=== PATIENT | female | born 1995 | race Caucasian/White ===

== ENCOUNTER 2017-02-24 20:46 | Emergency (ER) | payer MEDICAID ==
[2017-02-24 21:34] VITALS: BP 126/79
--- NOTE | 2017-02-24 23:04 | ER Document Report ---
ED General - General Chief Complaint: Sore Throat Stated Complaint: SORE THROAT Time Seen by Provider: 02/24/17 22:54 Notes: Patient is a 21 year old female presents with complaints of runny nose, cough, congestion, sore throat for a week. She says she initially felt like she had some fever but that has resolved but she still has a cough. She is hurts in her ribs and abdomen whenever she coughs. No dysuria. No vomiting. No diarrhea. She is a smoker. TRAVEL OUTSIDE OF THE [place] IN LAST 30 DAYS: No - Related Data Allergies/Adverse Reactions: amoxicillin trihydrate [From Augmentin] Allergy (Intermediate, Verified 21:32) Penicillins Allergy (Verified 02/24/17 21:32) Potassium Clavulanate * [From Augmentin] Allergy (Verified 02/24/17 21:32) sulfamethoxazole [From Septra] Allergy (Verified 02/24/17 21:32) rash trimethoprim [From Septra] Allergy (Verified 02/24/17 21:32) rash Past Medical History - Social History Smoking Status: Current Every Day Smoker Frequency of alcohol use: None Family History: Reviewed & Not Pertinent Neurological Medical History: Reports: Hx Seizures Renal/ Medical History: Denies: Hx Peritoneal Dialysis Psychiatric Medical History: Reports: Hx Depression - and anxiety Past Surgical History: Reports: Hx Section, Hx Oral Surgery - wisdom - Immunizations Immunizations up to date: Yes Hx Diphtheria, Pertussis, Tetanus Vaccination: Yes Hx Pneumococcal Vaccination: 05/11/14 Review of Systems - Review of Systems Notes: My Normal Review Basic REVIEW OF SYSTEMS: CONSTITUTIONAL : Subjective fever EENT: Nasal congestion. Sore throat. CARDIOVASCULAR: Denies chest pain. RESPIRATORY: Recurrent cough. GASTROINTESTINAL: Denies abdominal pain. Denies nausea, vomiting, or diarrhea. Denies constipation. Last BM: GENITOURINARY: Denies difficulty urinating, painful urination, burning, frequency, or blood in urine. MUSCULOSKELETAL: Denies neck or back pain or joint pain or swelling. SKIN: Denies rash or skin lesions. NEUROLOGICAL: Denies altered mental status or loss of consciousness. Denies headache. Denies weakness or paralysis or loss of use of either side. Denies problems with gait or speech. Denies sensory or motor loss. ALL OTHER SYSTEMS REVIEWED AND NEGATIVE. Physical Exam - Vital signs Vitals: Temp Pulse Resp BP Pulse Ox 98.8 F 93 H 16 126/79 H 100 02/24/17 21:32 02/24/17 21:32 02/24/17 21:32 02/24/17 21:32 02/24/17 21:32 - Notes Notes: General Appearance: Well nourished, alert, cooperative, no acute distress, mild obvious discomfort. Vitals: reviewed, See vital signs table. Head: no swelling or tenderness to the head Eyes: PERRL, EOMI, Conjuctiva clear Mouth: No decreasd moisture Throat: Mild tonsillar inflammation, No airway obstruction, No lymphadenopathy Neck: Supple, no neck tenderness, Lungs: No wheezing, No rales, No rhonci, No accessory muscle use, good air exchange bilaterally. Heart: Normal rate, Regular rythm, No murmur, no rub Abdomen: Normal BS, soft, No rigidity, mild lower abdominal tenderness to palpation, No guarding, no rebound, no abdominal masses, no organomegaly Extremities: strength 5/5 in all extremities, good pulses in all extremities, no swelling or tenderness in the extremities, no edema. Skin: warm, dry, appropriate color, no rash Neuro: speech clear, oriented x 3, normal affect, responds appropriately to questions. Course - Vital Signs Vital signs: Temp Pulse Resp BP Pulse Ox 98.8 F 93 H 16 126/79 H 100 02/24/17 21:32 02/24/17 21:32 02/24/17 21:32 02/24/17 21:32 02/24/17 21:32 - Transfer of Care Notes: 02/24/17 23:46 Patient's coughing congestion consistent with a URI that is looked bronchitis. She is a smoker. Informed her she has quit smoking. I told her that she would take a lot longer to improve as she continues smoke. I will give her shot Decadron. I will place her an albuterol inhaler. Her strep test was negative. She has no tachypnea. She has good air exchange without wheezing. At this time we'll she is safe to be discharged home. She is to return to ER if she has difficulty breathing, fevers, or if she feels that she is worsening. Patient agrees with plan and will be discharged home. Dictation of this chart was performed using voice recognition software; therefore, there may be some unintended grammatical errors. Discharge - Discharge Clinical Impression: URI (upper respiratory infection) Qualifiers: URI type: unspecified URI Qualified Code(s): J06.9 - Acute upper respiratory infection, unspecified Acute bronchitis Qualifiers: Bronchitis organism: unspecified organism Qualified Code(s): J20.9 - Acute bronchitis, unspecified Condition: Good Disposition: HOME, SELF-CARE Additional Instructions: BRONCHITIS: You have acute bronchitis. This disease is an infection or inflammation of the air passageways in your lungs. Symptoms usually include cough, low grade fever, shortness of breath, and wheezing. The cough usually persists for a couple of weeks. Most cases of bronchitis get better without antibiotics. We prescribe antibiotics when we believe bacteria are damaging your airways, or if there's high risk the bronchitis will worsen into pneumonia. Increase your fluid intake. A cool mist humidifier may make your lungs more comfortable. An expectorant (cough medicine that loosens phlegm) can help. If you smoke, STOP!!! Recovery from bronchitis can be somewhat slow, but you should see improvement within a day or two. Repeated episodes of bronchitis may result in lung damage -- for example, chronic bronchitis, recurrent pneumonias, or emphysema. Call the doctor if you develop increasing fever, shortness of breath, chest pain, bloody sputum, or otherwise worsen. If you have not improved at all after several days, contact the physician. INHALED BRONCHODILATORS: You have received a treatment of and/or prescription for an inhaled bronchodilator -- a medication which stimulates the airways in the lung to dilate. This improves the flow of air in asthma, bronchitis, and emphysema. These medicines have some similarity to adrenaline, and can cause similar side effects: shakiness, racing heart, and a sense of nervousness. These side effects decrease with time. Contact your doctor if these side effects are severe. Do not over-use the medicine. Too-frequent use of the inhaler may make it ineffective. Call your doctor if the inhaler is not controlling your symptoms at the prescribed doses. STEROID MEDICATION: You have been given an injection of or oral medicine of the cortisone/ steroid class. This medication is used to control inflammation or allergy. Nirav t is usually only given for a short period of time, until the acute process subsides. There are usually no side effects from short-term use of cortisone-like medications. Some persons feel an increased sense of well-being and are not sleepy at bedtime. Long-term use of cortisone medications is best avoided, unless required for a severe condition. If your condition does not remit, or relapses after the course of corticosteroid medication, you should consult your physician. USE OF ACETAMINOPHEN (Tylenol): Acetaminophen may be taken for pain relief or fever control. It's much safer than aspirin, offering a wider range of "safe" dosages. It is safe during . Some brand names are Tylenol, Panadol, Datril, Anacin 3, Tempra, and Liquiprin. Acetaminophen can be repeated every four hours. The following are maximum recommended dosages: >89 pounds or adults 650 mg to 900 mg Acetaminophen can be repeated every four hours. Maximum dose not to exceed 4000 mg a day. SMOKING: If you smoke, you should stop smoking. The tar and chemicals in cigarette smoke are harmful. Smoking has been shown to cause: emphysema chronic bronchitis lung cancer mouth and throat cancer stomach and pancreas cancer premature aging defects In addition, smoking increases ear and lung infections in children of smokers. FOLLOW-UP CARE: If you have been referred to a physician for follow-up care, call the physician s office for an appointment as you were instructed or within the next two days. If you experience worsening or a significant change in your symptoms, notify the physician immediately or return to the Emergency Department at any time for re-evaluation. Please return to the ER immediately if you develop fevers, difficulty breathing , or feel that your symptoms are worsening. Please use the inhaler as 2 puffs every 4 hours for cough. Forms: Return to Work
[2017-02-24] MEDS ORDERED: DEXAMETHASONE SOD PHOS INJ 10 MG/1 ML VIAL IM ONE (23:44)
[2017-02-24] MEDS ORDERED: ALBUTEROL SULFATE HFA (90 MCG/PUFF) 8 GM MDI (1 MDI/ER DISP) IH ONE (23:45)
== END 2017-02-25 00:05 | disposition home or self-care (01) ==
LOC: ER 20:46
DX: J06.9 Acute upper respiratory infection, unspecified (principal); J02.9 Acute pharyngitis, unspecified; R09.89 Other specified symptoms and signs involving the circulatory and respiratory systems; R05 Cough; R09.81 Nasal congestion; R50.9 Fever, unspecified; F17.200 Nicotine dependence, unspecified, uncomplicated
CPT/HCPCS: 99283; 96372; 87070; 87880; 71020; J1100; J3490

== ENCOUNTER 2019-06-15 12:06 | Emergency (ER) | payer SELFPAY ==
--- NOTE | 2019-06-15 12:51 | ER Document Report ---
Entered by TEMI KRUEGER SCRIBE 06/15/19 1232 Acting as scribe for:CORIE ADAMS MD ED Substance Abuse / Acc. OD - General Chief Complaint: Overdose Stated Complaint: POSSIBLE DEHYDRATION Time Seen by Provider: 06/15/19 12:25 Primary Care Provider: BONNIE BARRIGA MD [Primary Care Provider] - Follow up as needed Mode of Arrival: Medic Information source: Patient, Emergency Med Personnel Notes: Patient is a 24 year old female that presents to the emergency department today after being found by [employer] passed out on a park bench. [employer] reports that the patient was minimally arousable. Patient had a needle in her arm when she was found. Patient endorses heroin abuse for the last year. Patient states the last time she remembers using heroin was last night at around 11 p.m. Patient states her LMP was about a month ago. TRAVEL OUTSIDE OF THE [place] IN LAST 30 DAYS: No - Related Data Allergies/Adverse Reactions: amoxicillin trihydrate [From Augmentin] Allergy (Intermediate, Verified 06/15/19 12:48) Penicillins Allergy (Verified 06/15/19 12:48) Potassium Clavulanate * [From Augmentin] Allergy (Verified 06/15/19 12:48) sulfamethoxazole [From Septra] Allergy (Verified 06/15/19 12:48) rash trimethoprim [From Septra] Allergy (Verified 06/15/19 12:48) rash Past Medical History - General Information source: Patient - Social History Smoking Status: Current Every Day Smoker Cigarette use (# per day): Yes Frequency of alcohol use: None Drug Abuse: Heroin - for the last year Family History: Reviewed & Not Pertinent Neurological Medical History: Reports: Hx Seizures Psychiatric Medical History: Reports: Hx Anxiety, Hx Depression Past Surgical History: Reports: Hx Section, Hx Oral Surgery - wisdom - Immunizations Immunizations up to date: Yes Hx Diphtheria, Pertussis, Tetanus Vaccination: Yes Hx Pneumococcal Vaccination: 05/11/14 Review of Systems - Review of Systems Constitutional: No symptoms reported EENT: No symptoms reported Cardiovascular: No symptoms reported Respiratory: No symptoms reported Gastrointestinal: No symptoms reported Genitourinary: No symptoms reported Female Genitourinary: See HPI, Last menstrual period - x1 month ago Musculoskeletal: No symptoms reported Skin: No symptoms reported Hematologic/Lymphatic: No symptoms reported Neurological/Psychological: See HPI, Other - substance abuse, likely overdose -: Yes All other systems reviewed and negative Physical Exam - Vital signs Vitals: Temp Resp BP Pulse Ox 97.5 F 29 H 123/79 100 06/15/19 12:17 06/15/19 12:17 06/15/19 12:17 06/15/19 12:17 - Notes Notes: Physical Exam: General: Alert, appears well. HEENT: Normocephalic. Atraumatic. PERRL. Extraocular movements intact. Oropharynx clear. Neck: Supple. Non-tender. Respiratory: No respiratory distress. Clear and equal breath sounds bilaterally. Cardiovascular: Regular rate and rhythm. Abdominal: Normal Inspection. Non-tender. No distension. Normal Bowel Sounds. Back: No gross abnormalities. Extremities: Moves all four extremities. Upper extremities: Normal inspection. Normal ROM. Lower extremities: Normal inspection. No edema. Normal ROM. Neurological: Normal cognition. AAOx4. Normal speech. Psychological: Normal affect. Normal Mood. Skin: Warm. Dry. Normal color. Course - Re-evaluation Re-evalutation: 06/15/19 15:38 After the initial evaluation, the patient became quite somnolent and stay that way for a while. Eventually gave her Narcan 0.4 mg and she did lighten up some and open her eyes but her pupils remains rather small and she was not really wanting to communicate. We will give her an additional 2 mg dose to see if we can make her wide awake so that we can talk with her about detox resources in the future. 06/15/19 15:54 The patient does not stay alert enough to get a good history, unable to determine the intent of this overdose. I suspect she was shooting up fentanyl thinking it was heroin due to the length of time that she remains under the influence of the medication. She will be kept here on 24-hour hold and reevaluated in the morning because of concern that this overdose may not have been accidental. - Vital Signs Vital signs: Temp Pulse Resp BP Pulse Ox 97.5 F 20 123/79 98 06/15/19 12:17 06/15/19 12:18 06/15/19 12:17 06/15/19 12:18 - Laboratory Result Diagrams: 06/15/19 12:39 06/15/19 12:39 Laboratory results interpreted by me: 06/15/19 12:39 Creatinine 0.51 L AST 37 H Salicylates < 1.0 L Acetaminophen < 10 L - EKG Interpretation by Me EKG shows normal: Sinus rhythm, [place], Intervals, QRS Complexes, ST-T Waves Rate: Normal - 67 Rhythm: NSR Critical Care Note - Critical Care Note Total time excluding time spent on procedures (mins): 35 Discharge - Discharge Clinical Impression: Opiate or related narcotic overdose Qualifiers: Encounter type: initial encounter Injury intent: undetermined intent Qualified Code(s): T40.604A - Poisoning by unspecified narcotics, undetermined, initial encounter Condition: Stable Disposition: PSYCH HOSP/UNIT Referrals: BONNIE BARRIGA MD [Primary Care Provider] - Follow up as needed Scribe Attestation: 06/15/19 12:51 I personally performed the services described in the documentation, reviewed and edited the documentation which was dictated to the scribe in my presence, and it accurately records my words and actions. I personally performed the services described in the documentation, reviewed and edited the documentation which was dictated to the scribe in my presence, and it accurately records my words and actions.
[2019-06-15 13:07] LABS: ABSOLUTE LYMPHOCYTES (AUTO) 2.1 10^3/uL (0.5-4.7); ABSOLUTE MONOCYTES (AUTO) 0.7 10^3/uL (0.1-1.4); ABSOLUTE NEUT (AUTO) 7.6 10^3/uL (1.7-8.2); BASOPHILS % (AUTO) 0.2 % (0-2); EOSINOPHILS % (AUTO) 0.2 % (0-6); HEMATOCRIT 37.1 % (36.0-47.0); HEMOGLOBIN 12.5 g/dL (12.0-15.5); LYMPHOCYTES % (AUTO) 20.3 % (13-45); MEAN CORPUSCULAR HEMOGLOBIN 30.2 pg (27.0-33.4); MEAN CORPUSCULAR HGB CONC 33.8 g/dL (32.0-36.0); MEAN CORPUSCULAR VOLUME 89 fl (80-97); PLATELET COUNT 255 10^3/uL (150-450); RED BLOOD COUNT 4.15 10^6/uL (3.72-5.28); RED CELL DISTRIBUTION WIDTH 13.5 % (11.5-14.0); SEGMENTED NEUTROPHILS % (AUTO) 72.3 % (42-78); TOTAL CELLS COUNTED % (AUTO) 100 %; WHITE BLOOD COUNT 10.4 10^3/uL (4.0-10.5)
[2019-06-15 13:24] LABS: ACETAMINOPHEN < 10 ug/mL (10-30); ALBUMIN 4.5 g/dL (3.5-5.0); ALCOHOL < 10 mg/dL (NONE DETECTED); ALKALINE PHOSPHATASE 64 U/L (38-126); ANION GAP 12 (5-19); ASPARTATE AMINO TRANSFERASE 37 U/L (14-36); BILIRUBIN,DIRECT 0.3 mg/dL (0.0-0.4); BILIRUBIN,TOTAL 0.7 mg/dL (0.2-1.3); BLOOD UREA NITROGEN 10 mg/dL (7-20); CALCIUM 9.4 mg/dL (8.4-10.2); CARBON DIOXIDE 25 mmol/L (22-30); CHLORIDE 103 mmol/L (98-107); GLUCOSE 99 mg/dL (75-110); POTASSIUM 4.1 mmol/L (3.6-5.0); SALICYLATE < 1.0 mg/dL (2.0-20.0); TOTAL PROTEIN 7.6 g/dL (6.3-8.2)
[2019-06-15] MEDS ORDERED: NORMAL SALINE 1000 ML 1,000 ML IV ONE (15:01)
--- NOTE | 2019-06-15 15:01 | EKG REPORT ---
SEVERITY:- NORMAL ECG - SINUS RHYTHM : Confirmed by: Candido De La Garza MD 15-Jun-2019 15:00:57
--- NOTE | 2019-06-15 15:18 | PSYCHOLOGICAL NOTE ---
Psych Note - Psych Note Date seen by psych provider: 06/15/19 Time seen by psych provider: 13:40 - Discussion with ED Physician at 1340. Chart review at 1401. Attempted evaluation from [id number]. Psych Note: Presenting Problem: Patient brought in by EMS after [employer] responded to female passed out on bench with needles, reportedly used methamphetamine and heroin last night, was tearful in triage, told ED Physician she had a at age 18 and has child, shut down when asked where child was and stated she wanted help with addiction. ED Physician contacted [facility]. Thea came, was provided with face sheet, made contact, left resources, said patient was sedated. Observed patient in bed, she responded to her name being said by barely opening eyes, eyes were glossy, eyelids heavy and she could not keep them open, pinpoint pupils. She was seen 02/19/13 for depression and suicidal ideation. Waiting on UDS. With more Narcan she became a little more alert, was able to express she was cold and that her 5 year old child was with her grandmother. Diagnosis: OD Polysubstance Use Opioid Methamphetamine Depression Medication recommendations made by the psychiatric medication provider, Dr. Magdalena MD., includes: Add Thorazine 50MG every 6 hours as needed for psychosis/agitation Add Cogentin 1MG daily given with Thorazine to curb tremor side effects often associated with antipsychotic medications Impression/Plan: Recommendation for 24 Hour IVC Petition. Unable to assess patient due to sedation. She stated she wanted help. Will reassess when sober and can engage in evaluation. [facility] provided referral. Outpatient SA resource sheet is on patient's physical chart with [facility] highlighted and noted they will assist with voluntary detox to include how, as well as listed out 6 locations [facility] makes referrals to. Consulted with Dr. Hickman regarding the management and care of patient. ED Physician in agreement with recommendations.
[2019-06-15] MEDS ORDERED: CLINDAMYCIN 600 MG/D5W RTU 600 MG/50 ML RTUPB IV ONE (15:20)
[2019-06-15] MEDS ORDERED: NALOXONE HCL INJ/PF 0.4 MG/1 ML SDV IV ONE (15:20)
[2019-06-15] MEDS ORDERED: NALOXONE HCL INJ 2 MG/2 ML DISP.SYRIN IV ONE (15:38)
[2019-06-15] MEDS ORDERED: NALOXONE HCL INJ 2 MG/2 ML DISP.SYRIN ONE (15:38)
[2019-06-15] MEDS ORDERED: DEXTROSE 5%-LACTATED RINGERS 1,000 ML IV ONE (15:59)
[2019-06-15 17:17] LABS: APPEARANCE,URINE SLIGHTLY-CLOUDY; BILIRUBIN,URINE NEGATIVE (NEGATIVE); COLOR,URINE YELLOW; GLUCOSE, URINE NEGATIVE (NEGATIVE); KETONES,URINE TRACE mg/dL (NEGATIVE); LEUKOCYTE ESTERASE,URINE SMALL (NEGATIVE); NITRITE,URINE POSITIVE (NEGATIVE); PROTEIN,URINE NEGATIVE (NEGATIVE); UROBILINOGEN,URINE NEGATIVE mg/dL (<2.0)
[2019-06-15 17:25] LABS: URINE BARBITURATES SCREEN NEGATIVE; URINE BENZODIAZEPINES SCREEN NEGATIVE; URINE COCAINE SCREEN UNCONFIRMED POSITIVE; URINE MARIJUANA (THC) SCREEN NEGATIVE; URINE METHADONE SCREEN NEGATIVE; URINE PHENCYCLIDINE SCREEN NEGATIVE
[2019-06-15] MEDS ORDERED: CLINDAMYCIN 300 MG/D5W RTU 300 MG/50 ML RTUPB IV SCH (18:00)
[2019-06-15 21:08] VITALS: BP 103/60
[2019-06-15] MEDS ORDERED: BENZTROPINE MESYLATE INJ 2 MG/2 ML AMPULE IM PRN (21:12)
[2019-06-15] MEDS ORDERED: CHLORPROMAZINE HCL 50 MG TABLET PO PRN (21:12)
[2019-06-15] MEDS: CLINDAMYCIN 300 MG/D5W RTU 300 MG/50 ML RTUPB IV SCH (22:19)
[2019-06-15] MEDS ORDERED: ACETAMINOPHEN 325 MG TABLET PO ONE (23:26)
[2019-06-16] MEDS: CLINDAMYCIN 300 MG/D5W RTU 300 MG/50 ML RTUPB IV SCH (06:50)
[2019-06-16] MEDS ORDERED: ACETAMINOPHEN 325 MG TABLET PO ONE (08:39)
--- NOTE | 2019-06-16 09:49 | ER Document Report ---
Doctor's Note Notes: 06/16/19 09:47 Patient seen and examined. Her mother just left the room, they had a significant argument. It was primarily over the patient's drug use. She states she is getting help. She has plans to go to rehab in [place]. She is agreeable to outpatient management in the meantime. She denies any suicidal or homicidal ideation. No visual or auditory hallucination. She does complain of a headache, from which she suffers frequently. On physical exam is a 22-year-old female appears stated age in no acute distress. She is tearful but calm at this time, cooperative with examiner. Head is normocephalic and atraumatic. Heart is regular rhythm, lungs are clear to oscillation bilaterally. Skin is warm and dry. In short this patient primarily suffers from substance abuse issues. We will arrange outpatient follow-up, she has plans for rehab in [place]. She is noted to have UTI, will discharge with prescription for antibiotics. Patient will be discharged.
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
== END 2019-06-16 13:07 | disposition home or self-care (01) ==
LOC: ER 12:06
DX: T40.604A Poisoning by unspecified narcotics, undetermined, initial encounter (principal); R40.0 Somnolence; Y92.830 Public park as the place of occurrence of the external cause; F14.10 Cocaine abuse, uncomplicated; F15.10 Other stimulant abuse, uncomplicated; F11.10 Opioid abuse, uncomplicated; N39.0 Urinary tract infection, site not specified; R51 Headache; F17.210 Nicotine dependence, cigarettes, uncomplicated; Z88.0 Allergy status to penicillin; Z88.1 Allergy status to other antibiotic agents
CPT/HCPCS: 93005; 99285; 96361; 96375; 96365; 96366; 36415; 87040; 80307 ×4; 84703; 85025; 80053; 81001; 93010; J3490 ×2; J2310 ×2; J7121; J7030

== ENCOUNTER → 2019-08-02 | Outpatient (CLI) | payer BC ==
[2019-08-02 17:58] LABS: EPITHELIALS (WET MOUNT) 3+ EPITHELIALS SEEN; T.VAGINALIS (WET MOUNT) NO TRICHOMONAS SEEN; WBCS (WET MOUNT) 1+ WBCS SEEN; YEAST (WET MOUNT) NO YEAST SEEN
[2019-08-02 18:21] LABS: APPEARANCE,URINE CLEAR; BILIRUBIN,URINE NEGATIVE (NEGATIVE); COLOR,URINE YELLOW; GLUCOSE, URINE NEGATIVE (NEGATIVE); KETONES,URINE NEGATIVE (NEGATIVE); LEUKOCYTE ESTERASE,URINE TRACE (NEGATIVE); NITRITE,URINE NEGATIVE (NEGATIVE); PROTEIN,URINE NEGATIVE (NEGATIVE); URINE SPECIFIC GRAVITY 1.016; UROBILINOGEN,URINE NEGATIVE mg/dL (<2.0)
[2019-08-02 19:28] LABS: CHLAM PCR NOT DETECTED (NOT DETECT)
== END ==
LOC: LAB 17:50
PROVIDERS: ATTEND Nurse Practitioner Family
DX: R30.0 Dysuria (principal)
CPT/HCPCS: 81001; 87086; 87088; 87210; 87491; 87591

== ENCOUNTER 2020-03-03 07:45 | Inpatient (IN) | payer BC, MEDICAID ==
[2020-03-01 10:41] LABS: APPEARANCE,URINE SLIGHTLY-CLOUDY; BILIRUBIN,URINE NEGATIVE (NEGATIVE); COLOR,URINE YELLOW; GLUCOSE, URINE NEGATIVE (NEGATIVE); KETONES,URINE NEGATIVE (NEGATIVE); LEUKOCYTE ESTERASE,URINE TRACE (NEGATIVE); NITRITE,URINE NEGATIVE (NEGATIVE); PROTEIN,URINE 30 mg/dL (NEGATIVE); URINE SPECIFIC GRAVITY 1.025
[2020-03-01 10:51] LABS: ABSOLUTE EOSINOPHILS # (AUTO) 0.1 10^3/uL (0.0-0.6); ABSOLUTE LYMPHOCYTES (AUTO) 2.8 10^3/uL (0.5-4.7); ABSOLUTE MONOCYTES (AUTO) 0.8 10^3/uL (0.1-1.4); ABSOLUTE NEUT (AUTO) 9.2 10^3/uL (1.7-8.2); BASOPHILS % (AUTO) 0.1 % (0-2); EOSINOPHILS % (AUTO) 0.5 % (0-6); HEMATOCRIT 38.7 % (36.0-47.0); HEMOGLOBIN 13.5 g/dL (12.0-15.5); LYMPHOCYTES % (AUTO) 21.8 % (13-45); MEAN CORPUSCULAR HEMOGLOBIN 31.2 pg (27.0-33.4); MEAN CORPUSCULAR HGB CONC 34.8 g/dL (32.0-36.0); MEAN CORPUSCULAR VOLUME 90 fl (80-97); MONOCYTES % (AUTO) 6.3 % (3-13); PLATELET COUNT 242 10^3/uL (150-450); RED BLOOD COUNT 4.32 10^6/uL (3.72-5.28); RED CELL DISTRIBUTION WIDTH 13.6 % (11.5-14.0); SEGMENTED NEUTROPHILS % (AUTO) 71.3 % (42-78); TOTAL CELLS COUNTED % (AUTO) 100 %; WHITE BLOOD COUNT 12.9 10^3/uL (4.0-10.5)
[2020-03-01 11:07] LABS: URINE AMPHETAMINES SCREEN NEGATIVE; URINE BARBITURATES SCREEN NEGATIVE; URINE BENZODIAZEPINES SCREEN NEGATIVE; URINE COCAINE SCREEN NEGATIVE; URINE MARIJUANA (THC) SCREEN NEGATIVE; URINE METHADONE SCREEN NEGATIVE; URINE PHENCYCLIDINE SCREEN NEGATIVE
[2020-03-01 12:15] LABS: CHLAM PCR NOT DETECTED (NOT DETECT)
[~2020-03-03 07:45] MED LIST: AZITHROMYCIN 500 MG in DEXTROSE 5%-WATER 250 ML IV PRN; BUPIVACAINE HCL 0.25 % INJ/PF (2.5 MG/1 ML) 30 ML VIAL ONE; CLINDAMYCIN 900 MG/D5W RTU 900 MG/50 ML RTUPB IV PRN; LACTATED RINGERS 1000 ML IV PRN; RINGERS SOLUTION,LACTATED 1,000 ML IV PRN
[2020-03-03] MEDS ORDERED: BUPIVACAINE HCL 0.25 % INJ/PF (2.5 MG/1 ML) 30 ML VIAL ONE (09:35)
[2020-03-03] MEDS ORDERED: ONDANSETRON HCL INJ/PF 4 MG/2 ML SDV ONE (09:36)
[2020-03-03] MEDS ORDERED: FENTANYL CITRATE INJ/PF 100 MCG/2 ML AMPUL ONE (09:36)
[2020-03-03] MEDS ORDERED: OXYTOCIN/0.9 % SODIUM CHLORIDE 30 UNIT/500 ML RTUINJ ONE (09:36)
[2020-03-03] MEDS ORDERED: OXYTOCIN 10 UNIT/ML VIAL ONE (09:36)
[2020-03-03] MEDS ORDERED: ACETAMINOPHEN 1,000 MG/100 ML RTUPB IV ONE (09:36)
[2020-03-03] MEDS ORDERED: CITRIC ACID/SODIUM CITRATE ORAL SOLN 15 ML UDCUP ONE (10:25)
[2020-03-03] MEDS ORDERED: CLINDAMYCIN 900 MG/D5W RTU 0 MG/0 ML RTUPB IV ONE (10:28)
[2020-03-03] MEDS ORDERED: MEPERIDINE HCL/PF INJ 25 MG/1 ML DISP.SYRIN IV PRN (11:16)
[2020-03-03] MEDS ORDERED: PROMETHAZINE HCL INJ 25 MG/1 ML VIAL IV PRN ×2 (11:16→12:47)
[2020-03-03] MEDS ORDERED: FENTANYL CITRATE INJ/PF 100 MCG/2 ML AMPUL IV PRN ×3 (11:16)
[2020-03-03] MEDS ORDERED: DIPHENHYDRAMINE HCL 50 MG/ML VIAL IV PRN (11:16)
--- NOTE | 2020-03-03 12:45 | Brief Operative Note ---
BRIEF OPERATIVE REPORT DATE OF SURGERY: 03/03/20 TIME OF SURGERY: 11:30 PREOPERATIVE DIAGNOSIS: History of section. , 39+1ega, Smoker, ASCUS/+HPV, GBS positive. POSTOPERATIVE DIAGNOSIS: TODD - omental adhesions, pelvic adhesive disease SURGEON: FAISAL THORNTON FINDINGS: VMI delivered at 1124, Apgars 9/9, weight 7#2oz . Normal bilateral tubes/ovaries. Omental hernia upon initial incision. Omental apron disjointed with holes and omental resection performed during adhesiolysis after delivery to prevent bowel adhesions. IVF 1400ml, UOP 200ml, QBL 725 COMPLICATIONS: Adhesions ESTIMATED BLOOD LOSS: 600 TISSUE REMOVED OR ALTERED: placenta and cord TECHNICAL PROCEDURE: Repeat section, Scar revision, Omental resection and adhesiolysis
[2020-03-03] MEDS ORDERED: ACETAMINOPHEN 325 MG TABLET PO PRN (12:47)
[2020-03-03] MEDS ORDERED: ACETAMINOPHEN 1,000 MG/100 ML RTUPB IV PRN (12:47)
[2020-03-03] MEDS ORDERED: MEASLES,MUMPS&RUBELLA VACC/PF 0.5 ML VIAL SUBCUT PRN (12:47)
[2020-03-03] MEDS ORDERED: RINGERS SOLUTION,LACTATED 1,000 ML IV PRN (12:47)
[2020-03-03] MEDS ORDERED: DIPH/PERTUSS(ACELL)/TETANUS VAC/PF 0.5 ML SYR (>=10YO) IM PRN (12:47)
[2020-03-03] MEDS ORDERED: OXYCODONE-ACETAMINOPHEN 5-325 MG TABLET PO PRN (12:47)
[2020-03-03] MEDS ORDERED: HYDROMORPHONE HCL INJ/PF 2 MG/ML AMPULE IV PRN (12:47)
[2020-03-03] MEDS ORDERED: OXYTOCIN/0.9 % SODIUM CHLORIDE 30 UNIT/500 ML RTUINJ IV PRN (12:47)
[2020-03-03] MEDS: OXYCODONE-ACETAMINOPHEN 5-325 MG TABLET PO PRN ×2 (14:59→21:36)
[2020-03-03] MEDS: KETOROLAC TROMETHAMINE INJ/PF 30 MG/1 ML SDV IV SCH ×2 (15:43→21:35)
[2020-03-03] MEDS: DOCUSATE SODIUM 100 MG CAPSULE PO SCH (17:14)
[2020-03-03] MEDS: SIMETHICONE 80 MG TAB.CHEW PO PRN (21:41)
[2020-03-04] MEDS: OXYCODONE-ACETAMINOPHEN 5-325 MG TABLET PO PRN ×3 (04:54→18:43)
[2020-03-04] MEDS: SIMETHICONE 80 MG TAB.CHEW PO PRN (05:00)
[2020-03-04] MEDS: KETOROLAC TROMETHAMINE INJ/PF 30 MG/1 ML SDV IV SCH (05:01)
[2020-03-04 07:14] LABS: HEMATOCRIT 32.4 % (36.0-47.0); MEAN CORPUSCULAR HEMOGLOBIN 30.9 pg (27.0-33.4); MEAN CORPUSCULAR HGB CONC 34.3 g/dL (32.0-36.0); MEAN CORPUSCULAR VOLUME 90 fl (80-97); PLATELET COUNT 202 10^3/uL (150-450); RED BLOOD COUNT 3.59 10^6/uL (3.72-5.28); RED CELL DISTRIBUTION WIDTH 13.4 % (11.5-14.0); WHITE BLOOD COUNT 14.7 10^3/uL (4.0-10.5)
[2020-03-04 07:16] LABS: HEMOGLOBIN 11.1 g/dL (12.0-15.5)
[2020-03-04] MEDS ORDERED: IBUPROFEN 800 MG TABLET PO SCH (09:00)
[2020-03-04] MEDS ORDERED: PROMETHAZINE HCL INJ 25 MG/1 ML VIAL IV PRN (10:00)
[2020-03-04] MEDS ORDERED: MEASLES,MUMPS&RUBELLA VACC/PF 0.5 ML VIAL SUBCUT PRN (10:00)
[2020-03-04] MEDS ORDERED: DIPH/PERTUSS(ACELL)/TETANUS VAC/PF 0.5 ML SYR (>=10YO) IM PRN (10:00)
[2020-03-04] MEDS: PRENATAL VITAMIN W DHA CAPSULE PO SCH (10:04)
[2020-03-04] MEDS: DOCUSATE SODIUM 100 MG CAPSULE PO SCH ×2 (10:04→17:27)
--- NOTE | 2020-03-04 11:35 | PDOC PROGRESS REPORT ---
Subjective-OB Progress Note for:: 03/04/20 Subjective: reports bleeding slowing, pain controlled with current meds. denies needs. + passing gas Physical Exam (OB) Vital Signs: Temp Pulse Resp BP Pulse Ox 97.4 F 85 16 110/51 L 98 03/04/20 08:00 03/04/20 08:00 03/04/20 08:00 03/04/20 08:00 03/04/20 08:00 Intake & Output 03/03/20 03/04/20 03/05/20 06:59 06:59 06:59 Intake Total 925 300 Output Total 1360 Balance -435 300 - Incision: Well Approximated Closure Type: Surgical Glue - Abdomen Description: Tender, Soft Hernia Present: No Fundal Description: Firm, Midline Fundal Height: u/u - u/2 - Abdominal Distension: No distension - Extremities Lower extremities: Madison's sign - neg Calf: Normal, Nontender Objective-Diagnostic Laboratory: 03/04/20 06:33 03/04/20 06:33 WBC 14.7 H RBC 3.59 L Hgb 11.1 L D Hct 32.4 L MCV 90 MCH 30.9 MCHC 34.3 RDW 13.4 Plt Count 202 Assessment and Plan(PN) - Assessment and Plan (1) Status post repeat low transverse section Is this a current diagnosis for this admission?: Yes - Time Spent with Patient Time with patient: Less than 15 minutes Medications reviewed and adjusted accordingly: Yes - Disposition Anticipated Discharge: Home Within: within 48 hours
[2020-03-04] MEDS: IBUPROFEN 800 MG TABLET PO SCH ×2 (12:50→17:27)
[2020-03-05] MEDS: IBUPROFEN 800 MG TABLET PO SCH ×3 (00:24→11:28)
[2020-03-05] MEDS: OXYCODONE-ACETAMINOPHEN 5-325 MG TABLET PO PRN ×3 (00:26→12:20)
--- NOTE | 2020-03-05 10:19 | PDOC DISCHARGE SUMMARY ---
Impression - Admit/DC Date/PCP Admission Date/Primary Care Provider: 03/03/20 07:45 NO LOCALMD Discharge Date: 03/05/20 - POD #2, doing well today, no complaints, s/p Rtp C- section, Hx Hepatitis C, bottlefeeding, A+. Rubella Immune - Discharge Diagnosis (1) Hepatitis C Is this a current diagnosis for this admission?: Yes (2) Status post repeat low transverse section Is this a current diagnosis for this admission?: Yes - Additional Information Resuscitation Status: Full Code Discharge Diet: As Tolerated, Regular Discharge Activity: Activity As Tolerated, No Driving, No Lifting Over 10 Pounds, Pelvic Rest Referrals: LOCALMD,NO [Primary Care Provider] - Prescriptions: Ibuprofen [Motrin 800 mg Tablet] 800 mg PO Q6 #60 tablet Oxycodone HCl/Acetaminophen [Percocet 5-325 mg Tablet] 1 tab PO Q4HP PRN #30 tablet PRN Reason: Pain Scale Of 4 Home Medications: Pedi Multivit No.19/Folic Acid [Flintstones Multi-Vit Gummies] 400 mcg PO DAILY 04/27/14 Ibuprofen [Motrin 800 mg Tablet] 800 mg PO Q6 #60 tablet 03/05/20 Oxycodone HCl/Acetaminophen [Percocet 5-325 mg Tablet] 1 tab PO Q4HP PRN #30 tablet 03/05/20 HPI Reason(s) for Admission: Ceasarean Section-Repeat Intrapartum Procedure(s): : Low Cervical, Transverse Results Laboratory Results: WBC 14.7 10^3/uL (4.0-10.5) H 03/04/20 06:33 RBC 3.59 10^6/uL (3.72-5.28) L 03/04/20 06:33 Hgb 11.1 g/dL (12.0-15.5) L D 03/04/20 06:33 Hct 32.4 % (36.0-47.0) L 03/04/20 06:33 MCV 90 fl (80-97) 03/04/20 06:33 MCH 30.9 pg (27.0-33.4) 03/04/20 06:33 MCHC 34.3 g/dL (32.0-36.0) 03/04/20 06:33 RDW 13.4 % (11.5-14.0) 03/04/20 06:33 Plt Count 202 10^3/uL (150-450) 03/04/20 06:33 Lymph % (Auto) 21.8 % (13-45) 03/01/20 10:11 [place] % (Auto) 6.3 % (3-13) 03/01/20 10:11 Eos % (Auto) 0.5 % (0-6) 03/01/20 10:11 Baso % (Auto) 0.1 % (0-2) 03/01/20 10:11 Absolute Neuts (auto) 9.2 10^3/uL (1.7-8.2) H 03/01/20 10:11 Absolute Lymphs (auto) 2.8 10^3/uL (0.5-4.7) 03/01/20 10:11 Absolute Monos (auto) 0.8 10^3/uL (0.1-1.4) 03/01/20 10:11 Absolute Eos (auto) 0.1 10^3/uL (0.0-0.6) 03/01/20 10:11 Absolute Basos (auto) 0.0 10^3/uL (0.0-0.2) 03/01/20 10:11 Seg Neutrophils % 71.3 % (42-78) 03/01/20 10:11 Urine Color YELLOW 03/01/20 10:05 Urine Appearance SLIGHTLY-CLOUDY 03/01/20 10:05 Urine pH 6.0 (5.0-9.0) 03/01/20 10:05 Ur Specific [place] 1.025 03/01/20 10:05 Urine Protein 30 mg/dL (NEGATIVE) H 03/01/20 10:05 Urine Glucose (UA) NEGATIVE mg/dL (NEGATIVE) 03/01/20 10:05 Urine Ketones NEGATIVE mg/dL (NEGATIVE) 03/01/20 10:05 Urine Blood NEGATIVE (NEGATIVE) 03/01/20 10:05 Urine Nitrite NEGATIVE (NEGATIVE) 03/01/20 10:05 Urine Bilirubin NEGATIVE (NEGATIVE) 03/01/20 10:05 Urine Urobilinogen 2.0 mg/dL (<2.0) H 03/01/20 10:05 Ur Leukocyte Esterase TRACE (NEGATIVE) H 03/01/20 10:05 Urine WBC (Auto) 8 /HPF 03/01/20 10:05 Urine RBC (Auto) 4 /HPF 03/01/20 10:05 Urine Bacteria (Auto) TRACE /HPF 03/01/20 10:05 Squamous Epi Cells Auto 8 /HPF 03/01/20 10:05 Urine Mucus (Auto) FEW /LPF 03/01/20 10:05 Urine Ascorbic Acid NEGATIVE (NEGATIVE) 03/01/20 10:05 Urine Opiates Screen NEGATIVE 03/01/20 10:05 Urine Methadone Screen NEGATIVE 03/01/20 10:05 Ur Barbiturates Screen NEGATIVE 03/01/20 10:05 Ur Phencyclidine Scrn NEGATIVE 03/01/20 10:05 Ur Amphetamines Screen NEGATIVE 03/01/20 10:05 U Benzodiazepines Scrn NEGATIVE 03/01/20 10:05 Urine Cocaine Screen NEGATIVE 03/01/20 10:05 U Marijuana (THC) Screen NEGATIVE 03/01/20 10:05 Chlamydia DNA (PCR) NOT DETECTED (NOT DETECT) 03/01/20 10:05 COVID-19 Source NASOPHARYNGEAL 02/27/20 15:45 COVID-19 (NIESSA) NOT DETECTED 02/27/20 15:45 N.gonorrhoeae DNA (PCR) NOT DETECTED (NOT DETECT) 03/01/20 10:05 Blood Type A POSITIVE 03/01/20 10:11 Antibody Screen NEGATIVE 03/01/20 10:11 Plan Plan of Treatment: d/c to home, f/up at [facility] in one week for incision check Time Spent: Less than 30 Minutes
[2020-03-05] MEDS: DOCUSATE SODIUM 100 MG CAPSULE PO SCH (10:21)
[2020-03-05] MEDS: PRENATAL VITAMIN W DHA CAPSULE PO SCH (10:21)
[2020-03-05 10:44] VITALS: BP 110/51
--- NOTE | 2020-03-12 08:29 | Operative Report ---
Operative Report DATE OF SURGERY: 03/03/20 PREOPERATIVE DIAGNOSIS: History of section. , 39+1ega, Smoker, ASCUS/+HPV, GBS positive. POSTOPERATIVE DIAGNOSIS: TODD - omental adhesions, pelvic adhesive disease OPERATION: Repeat section, Scar revision, Partial omental resection. SURGEON: FAISAL THORNTON ANESTHESIA: Spinal TISSUE REMOVED OR ALTERED: placenta and cord COMPLICATIONS: Adhesions ESTIMATED BLOOD LOSS: 600 QUANTITATIVE BLOOD LOSS: 725 INTRAOPERATIVE FINDINGS: VMI delivered at 1124, Apgars 9/9, weight 7#2oz . Normal bilateral tubes/ovaries. Omental hernia upon initial incision. Omental apron disjointed with holes and omental resection performed during adhesiolysis after delivery to prevent bowel adhesions. IVF 1400ml, UOP 200ml, QBL 725 PROCEDURE: Anesthesia provider: [Elidia Leone CRNA, Gaetano MYERS] Urine output: [200ml] IV fluids: [1400ml] Indications: [24yo at 39+1ega presents for scheduled section. She has a history of section in 2013. She desires depoprovera for contraception. The risk, benefits, alternatives were reviewed and she desires to proceed with planned section. ] Procedure: The patient was taken to the operating room where spinal anesthesia was obtained and found to be adequate. She was then prepped and draped in the normal sterile fashion and placed in the dorsal supine position with a leftward tilt. A Pfannenstiel skin incision was then made and carried through to the underlying layers of the fascia with the scalpel. The fascia was incised in the midline and the incision extended laterally with the Shoemaker scissors. The superior aspect of the fascial incision was then grasped with Nando clamps elevated and the underlying rectus muscles dissected off [bluntly]. Attention was then turned to the inferior aspect of the fascial incision which in a yvette lar fashion was grasped, tented up with Nando clamps, and the rectus muscles dissected off [bluntly]. The rectus muscles were then in the midline and the peritoneum at the amount identified and entered [bluntly]. The peritoneal incision was then extended superiorly and inferiorly with good visualization of the bladder. The omentum was noted initially to be herniated through the rectus muscles and The bladder blade was inserted and the vesicouterine peritoneum identified grasped with [place]ine[place] pickups and entered sharply with the Metzenbaum scissors. This incision was then extended laterally with the Metzenbaum scissors and a bladder flap created digitally. The bladder blade was then reinserted and the lower uterine segment incised in a transverse fashion with the scalpel. The uterine incision was then extended bluntly. The bladder blade was removed and the 's head was delivered from cephalic presentation atraumatically. The nose and mouth were suctioned and the cord doubly clamped and cut. And the was handed off to waiting pediatricians. The placenta was then delivered spontaneously and the uterus exteriorized and cleared of all clots and debris. The uterine incision was then repaired with 1- 0 Vicryl in a running locked fashion. A second layer of the same suture was used to obtain hemostasis via imbrication of the initial layer. The bladder fl ap was then repaired with 3-0 chromic in a running fashion. The uterus was returned to the patient's abdomen and Interceed was placed overlying the uterine incision to prevent adhesions. The gutters were cleared of all clots and debris. Multiple holes in the peritoneum noted and due to risk of future bowel obstruction these areas were clamped/cut/transected in the usual fahsion. All operative sites were noted to be hemostatic. The fascia was reapproximated with 0 Vicryl in a running fashion from each lateral edge to the midline. The skin was closed with 3-0 Monocryl in a running subcuticular fashion with overlying Dermabond for additional dressing as well as wound closure. The patient tolerated the procedure well. Sponge lap needle and instrument counts are correct times 2. Azithromycin 500mg IV and Clindamycin 900mg were given prior to skin incision. The patient was taken to the recovery area awake and in stable condition.
== END 2020-03-05 13:40 | disposition home or self-care (01) | DRG 787 ==
LOC: 2S 07:45
PROVIDERS: ADMIT Student in an Organized Health Care Education/Training Program; ATTEND Student in an Organized Health Care Education/Training Program
PROC: 10D00Z1 Extraction of Products of Conception, Low, Open Approach (ICD-10-PCS; principal; 2020-03-03)
PROC: 0DNU0ZZ Release Omentum, Open Approach (ICD-10-PCS; 2020-03-03)
PROC: 0DQW0ZZ Repair Peritoneum, Open Approach (ICD-10-PCS; 2020-03-03)
DX: O34.219 Maternal care for unspecified type scar from previous cesarean delivery (principal); O98.42 Viral hepatitis complicating childbirth; O99.89 Other specified diseases and conditions complicating pregnancy, childbirth and the puerperium; K46.9 Unspecified abdominal hernia without obstruction or gangrene; O99.334 Smoking (tobacco) complicating childbirth; F17.210 Nicotine dependence, cigarettes, uncomplicated; O99.824 Streptococcus B carrier state complicating childbirth; O34.211 Maternal care for low transverse scar from previous cesarean delivery; Z37.0 Single live birth; Z3A.39 39 weeks gestation of pregnancy; Z20.828 Contact with and (suspected) exposure to other viral communicable diseases; O99.62 Diseases of the digestive system complicating childbirth; K66.0 Peritoneal adhesions (postprocedural) (postinfection)
CPT/HCPCS: 1961; 36415; 59025; 80307; 81001; 85025; 85027; 86850; 86900; 86901; 87491; 87591; 87635; 94760; 94799; C1765; J0131; J0456; J1170; J1885; J2405; J2590; J3010; J3490; J7060; J7120